=== PATIENT | female | born 1975 | race Caucasian/White ===

== ENCOUNTER → 2017-09-13 | Outpatient (CLI) | payer BC ==
--- NOTE | 2017-09-14 08:32 | MM ---
Reason for exam: screening (asymptomatic). Baseline mammogram. History: Family history of breast cancer in maternal grandmother at age 83. Physical Findings: Nurse Summary: 0.5cm nodule in the right breast at 4 o'clock and a 1cm nodule in the left breast at 12 o'clock (nurse mj). MG Screening Mammo w CAD Bilateral CC and MLO view(s) were taken. The breast tissue is heterogeneously dense. This may lower the sensitivity of mammography. There is no discrete abnormality. Focal asymmetry outer aspect both breasts. These results were verbally communicated with the patient and result sheet given to the patient on 09/13/17. ASSESSMENT: Incomplete: need additional imaging evaluation, BI-RAD 0 RECOMMENDATION: Special view mammogram of both breasts. If lesion persists on supplemental views, image directed ultrasound is recommended. [facility] will attempt to contact patient to return for supplemental views and ultrasound if indicated.
--- NOTE | 2017-09-14 08:34 | MM ---
Reason for exam: additional evaluation requested from abnormal screening. History: Family history of breast cancer in maternal grandmother at age 83. Physical Findings: Breast exam preformed at baseline screening. MG Work Up Mamm w CAD BILAT Bilateral LM and spot compression CC view(s) were taken. The breast tissue is heterogeneously dense. This may lower the sensitivity of mammography. No distinct lesion on additional images provided. These results were verbally communicated with the patient and result sheet given to the patient on 09/13/17. ASSESSMENT: Incomplete: need additional imaging evaluation, BI-RAD 0 RECOMMENDATION: Ultrasound of both breasts. (palpable by nurse)
--- NOTE | 2017-09-14 08:35 | USB ---
Reason for exam: additional evaluation requested from abnormal screening. History: Family history of breast cancer in maternal grandmother at age 83. US Breast Workup Limited NAGA Right breast ultrasound demonstrates no cystic or solid lesion seen. Left breast ultrasound demonstrates no cystic or solid lesion seen. These results were verbally communicated with the patient and result sheet given to the patient on 09/13/17. ASSESSMENT: Negative, BI-RAD 1 RECOMMENDATION: Routine screening mammogram of both breasts in 1 year.
== END | disposition home or self-care (01) ==
LOC: RADMAMWWP 13:41
PROVIDERS: ATTEND Internal Medicine
DX: Z12.31 Encounter for screening mammogram for malignant neoplasm of breast (principal); R92.8 Other abnormal and inconclusive findings on diagnostic imaging of breast
CPT/HCPCS: 77066; 77067

== ENCOUNTER → 2023-05-19 | Outpatient (CLI) | payer BC ==
--- NOTE | 2023-05-19 19:06 | US ---
EXAMINATION TYPE: US pelvic complete DATE OF EXAM: 05/19/2023 COMPARISON: NONE CLINICAL INDICATION: Female, 47 years old with history of N92.0 EXCESSIVE AND FREQUENT MENSTRUATION W ITH REG; painful, heavy menses with large clots since puberty TECHNIQUE: Transabdominal (TA). Transabdominal sonographic images of the pelvis were acquired. Date of LMP: 04/29/23 EXAM MEASUREMENTS: Uterus: 9.1x4.6x5.8 cm Endometrial Stripe: 1.5 cm Right Ovary: 2.8x2.4x1.5 cm Left Ovary: 2.3x1.8x1.7 cm 1. Uterus: Retroverted wnl 2. Endometrium: wnl 3. Right Ovary: wnl 4. Left Ovary: wnl 6. Posterior cul-de-sac: wnl Patients bladder very distended additional images taken after partial void. Exam difficult due to ret roverted bladder. Patient declined TV at this time IMPRESSION: 1. No evidence for acute pelvic process. 2. Endometrium within normal limits for premenopausal patient.
== END | disposition home or self-care (01) ==
LOC: RADUSWWP 14:52
PROVIDERS: ATTEND Family Medicine
DX: N92.0 Excessive and frequent menstruation with regular cycle (principal)
CPT/HCPCS: 76856

== ENCOUNTER → 2023-09-08 | Outpatient (CLI) | payer BC ==
--- NOTE | 2023-09-08 11:59 | FL ---
COMPARISON: NONE DATE OF EXAM: 09/08/2023 HISTORY: This patient A number of thin and thick substances were ingested under the care of the department of speech pathol ogy. There is no evidence of aspiration or penetration. There is no evidence of obstruction. 01 mi nute 16 seconds rest. This fluoroscopically cannot produce a DAP. IMPRESSION: 1. No evidence of aspiration or penetration.
== END | disposition home or self-care (01) ==
LOC: RADFLMAIN 11:22
PROVIDERS: ATTEND Family Medicine
DX: R13.10 Dysphagia, unspecified (principal)
CPT/HCPCS: 74230

== ENCOUNTER → 2023-09-22 | Outpatient (CLI) | payer BC ==
--- NOTE | 2023-09-22 12:15 | FL ---
EXAMINATION TYPE: FL barium swallow DATE OF EXAM: 09/22/2023 CLINICAL INDICATION: 48 year-old female R13.10, dysphagia COMPARISON: None Total Fluoroscopy Time: 1 minute 55 seconds Total DAP: 259.7 mGycm2. 50 images obtained. FINDINGS: The swallowing mechanism is normal. There is mild anterior endplate spondylosis at both C5-C6 and C6/ C7 causing mild impressions on the back wall of the cervical esophagus but without any obstruction. H ypopharyngeal anatomy is otherwise preserved. The cervical and thoracic portions have a normal course and caliber. Minimal occasional tertiary rea staltic contractions are encountered, likely age related change. The mucosa is normal and no persistent filling defect is encountered. No hiatal hernia is present. No gastroesophageal reflux is identified. IMPRESSION: 1. Mild anterior cervical spondylosis particularly at C5-C6 and C6-C7. These spurs mildly impress ont o the back wall of the cervical esophagus but do not cause any obstruction. 2. Otherwise, unremarkable esophagram.
--- NOTE | 2023-09-23 09:43 | MM ---
Reason for Exam: Screening (asymptomatic). Last mammogram was performed 6 year(s) and 0 month(s) ago. Patient History: Menarche at age 12. First Full-Term at age 24. Premenopausal. Patient has history of breast feeding. Maternal grandmother had breast cancer, age 83. Maternal aunt had breast cancer. Maternal cousin had ovarian cancer under age 50. Maternal cousin had breast cancer under age 50. Last menstrual period: 09/07/2023 Risk Values: Yoli 5 year model risk: 1.0%. NCI Lifetime model risk: 9.1%. Prior Study Comparison: 09/13/2017 Bilateral Screening Mammogram, [facility]. 09/13/2017 Bilateral Diagnostic Mammogram, [facility]. Tissue Density: The breast tissue is heterogeneously dense. This may lower the sensitivity of mammography. Findings: Analyzed By CAD. There is no suspicious group of microcalcifications. There are nodular densities bilaterally for which spot compression view recommended. Overall Assessment: Incomplete: need additional imaging evaluation, BI-RAD 0 Management: Special View Mammogram of both breasts. . Patient should continue monthly self-breast exams. A clinical breast exam by your physician is recommended on an annual basis. This exam should not preclude additional follow-up of suspicious palpable abnormalities. Note on Yoli scores and lifetime risk: 1. A Yoli score greater than 3% is considered moderate risk. If this is the case, consider specialist referral to assess eligibility for a risk reducing agent. 2. If overall lifetime risk for the development of breast cancer is 20% or higher, the patient may qualify for future screening with alternating mammogram and breast MRI. Electronically signed and approved by: Mian Calles M.D. Radiologis
== END | disposition home or self-care (01) ==
LOC: RADMAMWWP 09:25
PROVIDERS: ATTEND Family Medicine
DX: Z12.31 Encounter for screening mammogram for malignant neoplasm of breast (principal); M47.812 Spondylosis without myelopathy or radiculopathy, cervical region; R13.10 Dysphagia, unspecified; Z80.3 Family history of malignant neoplasm of breast
CPT/HCPCS: 74220; 77067

== ENCOUNTER → 2023-10-03 | Outpatient (CLI) | payer BC ==
--- NOTE | 2023-10-03 14:28 | MM ---
Reason for Exam: Additional evaluation requested from abnormal screening. Last screening mammogram was performed less than 1 month ago. Patient History: Menarche at age 12. First Full-Term at age 24. Premenopausal. Patient has history of breast feeding. Maternal grandmother had breast cancer, age 83. Maternal aunt had breast cancer. Maternal cousin had ovarian cancer under age 50. Maternal cousin had breast cancer under age 50. Risk Values: Yoli 5 year model risk: 1.0%. NCI Lifetime model risk: 9.1%. Prior Study Comparison: 09/13/2017 Bilateral Diagnostic Mammogram, [facility]. 09/22/2023 Bilateral MG screening mammo w CAD, [facility]. Tissue Density: The breast tissue is heterogeneously dense. This may lower the sensitivity of mammography. Findings: Analyzed By CAD. Right breast: At the right 1:00 position there is a nodular density that persists approximately 6.7 cm from the nipple measuring 1 cm. Ultrasound is recommended. Left breast: The left 1:00 position 3.5 cm from the nipple is a nodular density measuring 5 mm. Ultrasound recommended. Overall Assessment: Incomplete: need additional imaging evaluation, BI-RAD 0 Management: Diagnostic Breast Ultrasound of both breasts. . Results were given to the patient verbally at the time of exam. Patient should continue monthly self-breast exams. A clinical breast exam by your physician is recommended on an annual basis. This exam should not preclude additional follow-up of suspicious palpable abnormalities. Note on Yoli scores and lifetime risk: 1. A Yoli score greater than 3% is considered moderate risk. If this is the case, consider specialist referral to assess eligibility for a risk reducing agent. 2. If overall lifetime risk for the development of breast cancer is 20% or higher, the patient may qualify for future screening with alternating mammogram and breast MRI. Electronically signed and approved by: Caden Nicholson M.D. Radiologis
--- NOTE | 2023-10-04 07:59 | USB ---
Reason for Exam: Additional evaluation requested from abnormal screening. Patient History: Menarche at age 12. First Full-Term at age 24. Premenopausal. Patient has history of breast feeding. Maternal grandmother had breast cancer, age 83. Maternal aunt had breast cancer. Maternal cousin had ovarian cancer under age 50. Maternal cousin had breast cancer under age 50. Risk Values: Yoli 5 year model risk: 1.0%. NCI Lifetime model risk: 9.1%. Technique: Method: Targeted. Prior Study Comparison: 09/13/2017 Bilateral Screening Mammogram, [facility]. 09/13/2017 Bilateral Diagnostic Mammogram, [facility]. 09/22/2023 Bilateral MG screening mammo w CAD, [facility]. Findings: The upper section of the breast of both breasts, the axilla of both breasts and the retroareolar of both breasts were scanned. Right breast: At the 1:00 position right breast 7 cm from the nipple there is a cystic lesion with internal echoes measuring 6 mm. Six-month follow-up recommended Left breast: At the left 1:00 position 3 cm from the nipple there is a cystic lesion with internal echoes which is smoothly marginated and measures 0.4 x 8.3 cm. No solid masses seen. Six-month follow-up recommended. Overall Assessment: Probably benign, BI-RAD 3 Management: Diagnostic Breast Ultrasound of both breasts in 6 months. A clinical breast exam by your physician is recommended on an annual basis and results should be correlated with mammographic findings. This exam should not preclude additional follow-up of suspicious palpable abnormalities. Results were given to the patient verbally at the time of exam. Electronically signed and approved by: Caden Nicholson M.D. Radiologis
== END | disposition home or self-care (01) ==
LOC: RADMAMWWP 09:23
PROVIDERS: ATTEND Family Medicine
DX: N60.01 Solitary cyst of right breast (principal); N60.02 Solitary cyst of left breast; Z80.3 Family history of malignant neoplasm of breast; R92.333 Mammographic heterogeneous density, bilateral breasts
CPT/HCPCS: 77062; 77066